=== PATIENT | male | born 1995 | race Caucasian/White ===

== ENCOUNTER 2021-07-12 21:28 | Emergency (ER) | payer OTHER, SELFPAY ==
[2021-07-12 21:29] VITALS: BP 146/98; PULSE 100; RESP 16; TEMP 37.4; O2SAT 97; BMI 25.8
--- NOTE | 2021-07-12 21:52 | XR_ITS ---
PROCEDURE INFORMATION: Exam: XR Chest Exam date and time: 07/12/2021 9:52 PM Age: 26 years old Clinical indication: Cough and shortness of breath; Patient HX: Cough, SOA, body aches TECHNIQUE: Imaging protocol: XR of the chest. Views: 2 views. COMPARISON: CR XR SOFT TISSUE NECK 09/13/2019 4:30 PM FINDINGS: Lungs: Faint left basilar opacity Pleural spaces: Unremarkable. No pleural effusion. No pneumothorax. Heart/Mediastinum: Unremarkable. No cardiomegaly. Bones/joints: Unremarkable. IMPRESSION: Faint left basilar opacity may represent infiltrate
[2021-07-12 22:00] LABS: Influenza A, PCR Not Detected (NotDetected); Influenza B, PCR Not Detected (NotDetected)
[2021-07-12 22:29] LABS: Coronavirus 19, PCR Detected (NotDetected)
--- NOTE | 2021-07-12 22:29 | HMH.EDSOB ---
ED Disposition Clinical Impression: COVID-19 Disposition: Home, Self-Care Condition on Discharge: Good Instructions: DI for COVID-19 (Suspected or Confirmed ) Additional Instructions: fluids and see pcp for follow up Referrals: Provider,Referral, [Primary Care Provider] - - Critical Care Critical Care Time: No Attestation: On 07/12/21, the high probability of a clinically significant, sudden or life threatening deterioration of the following system(s) required my full and direct attention, intervention and personal management. The time I documented below is in addition to time spent performing reported procedures but includes the following listed in this critical care notation. Medical Decision Making - Medical Records Medical records reviewed: Yes: I reviewed the patient's medical records. - Julian Inquiry Pt receiving controlled substance: No Vital Signs: 07/12/21 21:29 Temperature 99.4 F Temperature Source Oral Pulse Rate [Left Radial] 100 H Respiratory Rate 16 Blood Pressure [Right Arm] 146/98 H Blood Pressure Mean [Right Arm] 114 Blood Pressure Source [Right Arm] Automatic Cuff Blood Pressure Position [Right Arm] Sitting 02 Sat by Pulse Oximetry 97 Oxygen Delivery Method Room Air - Lab Data Lab results reviewed: Yes: I reviewed the patient's lab results. Lab Results 07/12/21 21:50: SARS-CoV-2 (PCR) Detected A, Influenza A Untype (PCR) Not detected, Influenza Type B (PCR) Not detected Orders (Tests/Meds): ED MEDICATIONS Discontinued Medications Generic Name Dose Route Start Last Admin Trade Name Freq PRN Reason Stop Dose Admin Acetaminophen 1,000 mg 07/12/21 21:52 07/12/21 21:57 Acetaminophen 500mg Tab PO 07/12/21 21:53 1,000 mg ONCE ONE Administration Dexamethasone Sodium Phosphate 10 mg 07/12/21 21:53 07/12/21 22:28 Dexamethasone 4mg/Ml 5ml Mdv IM 07/12/21 21:54 10 mg ONCE ONE Administration Ibuprofen 600 mg 07/12/21 21:52 07/12/21 21:57 Ibuprofen 600 Mg Tablet PO 07/12/21 21:53 600 mg ONCE ONE Administration - Radiology Data #1 Image(s): Chest Image Reviewed: Yes I have reviewed radiologist's interpretation Preliminary Findings: Abnormal Medical Decision Narrative: pt with covid-19 Resp/SOB HPI - General Chief Complaint: Upper Respiratory Infection Stated Complaint: cough Time Seen by Provider: 07/12/21 22:00 Mode of Arrival: Ambulatory Source of Information: Patient, Medical Record Limitations: Language Barrier Description of Symptoms (Recalled from ER Triage Doc. by RN): Pt c/o cough, BORDEN, sore throat, and body aches that started last friday. - History of Present Illness cough and achey over the last few days MD Complaint: cough Onset (ago): day(s) Severity: moderate Associated symptoms: denies other symptoms - Related Data Home oxygen amount: none Home Medications Medication Instructions Recorded Confirmed No Known Home Medications 07/12/21 07/12/21 Allergies Allergy/AdvReac Type Severity Reaction Status Date / Time No Known Allergies Allergy Verified 07/12/21 21:51 [facility] History - Hepatitis A Screen Drug use history?: No High risk sexual behaviors?: No History of sexually transmitted infection?: No Currently employed?: No Childcare worker?: No Do you have indoor plumbing?: Yes Do you have electricity?: Yes Attestation statement:: This patient has been screened for Hepatitis A risk factors. I have reviewed the patient's past medical history: Yes - Social History Smoking Status: Current every day smoker Tobacco Type: cigarettes # Packs/Day (cigarettes): 1 Alcohol Intake: never Occupational Status: other ROS Obtained: Yes All systems reviewed & no additional complaints - Constitutional Constitutional: Reports as per HPI, Reports fever(s) - Eyes Eyes: Denies change in vision - ENT Ears, Nose, Mouth, and Throat: Denies sore throat - Cardiovascular Cardiovascular
[2021-07-12 22:30] VITALS: BP 141/98; PULSE 88; RESP 18; O2SAT 97
[2021-07-12 23:00] VITALS: BP 148/90; PULSE 84; O2SAT 98
[2021-07-12 23:32] VITALS: BP 139/91; PULSE 88; RESP 16; TEMP 36.8; O2SAT 98
== END 2021-07-12 23:34 | disposition home or self-care (01) ==
PROVIDERS: Emergency Provider Emergency Medicine
DX: U07.1 COVID-19 (principal); F17.210 Nicotine dependence, cigarettes, uncomplicated
CPT/HCPCS: 71046; 96372; 99282; U0003

== ENCOUNTER 2021-07-24 10:10 | Emergency (ER) | payer OTHER, SELFPAY ==
[2021-07-24 11:26] VITALS: BP 139/88; PULSE 61; RESP 18; TEMP 36.8; O2SAT 98; BMI 22.4
[2021-07-24 11:30] VITALS: BP 139/88; PULSE 61; RESP 18; TEMP 36.8
--- NOTE | 2021-07-24 11:51 | HMH.EDUTC ---
[facility] [place] Disposition Clinical Impression: COVID-19 Disposition: Home, Self-Care Condition on Discharge: Good Instructions: DI for COVID-19 (Suspected or Confirmed ), Preventing the Spread of Coronavirus Discharge Instructions Additional Instructions: If your quarantine time is up and you feel better, it should be ok for you to return to work without being retested. Follow up with your primary care physician. GO TO THE ER FOR ANY WORSENING SYMPTOMS OR CONCERNS Referrals: Provider,Referral, [Primary Care Provider] - Time of Disposition: 11:55 Medical Decision Making - Medical Records Medical records reviewed: No: I reviewed the patient's medical records. - Julian Inquiry Pt receiving controlled substance: No Vital Signs: 07/24/21 11:26 07/24/21 11:30 Temperature 98.3 F 98.3 F Temperature Source Oral Pulse Rate 61 Pulse Rate [Left] 61 Respiratory Rate 18 18 Blood Pressure 139/88 Blood Pressure [Right Arm] 139/88 Blood Pressure Mean [Right Arm] 105 02 Sat by Pulse Oximetry 98 [facility] [place] HPI - General Stated complaint: covid test Time Seen by Provider: 07/24/21 11:51 Mode of Arrival: Ambulatory Source of Information: Patient Limitations: No Limitations Description of Symptoms (Recalled from Triage Doc. by RN): covid test. pt had a positive test two weeks ago. HEENT Symptoms (Recalled from RN notes): No Resp Symptoms (Recalled from RN notes): No Skin Symptoms (Recalled from RN notes): No MS Symptoms (Recalled from RN notes): No Functional Status (Recalled from RN notes): na - History of Present Illness Provider Complaint: He tested positive for covid-19 2 weeks ago. He did ok with covid-19 and got better fairly quickly. His employer brought him here to be retested before he returns to work. He has not had any symptoms in several days. - Related Data Home Medications Medication Instructions Recorded Confirmed No Known Home Medications 07/12/21 07/12/21 Allergies Allergy/AdvReac Type Severity Reaction Status Date / Time No Known Allergies Allergy Verified 07/12/21 21:51 - Worker's Comp Is this a Worker's Comp case?: No [facility] History - Hepatitis A Screen Drug use history?: No High risk sexual behaviors?: No History of sexually transmitted infection?: No Currently employed?: No Childcare worker?: No Do you have indoor plumbing?: Yes Do you have electricity?: Yes Attestation statement:: This patient has been screened for Hepatitis A risk factors. I have reviewed the patient's past medical history: Yes - Social History Smoking Status: Current every day smoker Tobacco Type: cigarettes # Packs/Day (cigarettes): 1 Alcohol Intake: never Occupational Status: other ROS Obtained: Yes All systems reviewed & no additional complaints - Constitutional Constitutional: Denies chills, Denies fever(s) - Eyes Eyes: Denies eye discharge - ENT Ears, Nose, Mouth, and Throat: Denies dizziness, Denies otalgia, Denies sore throat - Cardiovascular Cardiovascular: Denies chest pain - Respiratory Respiratory: Denies chest congestion, Denies cough, Denies dyspnea, Denies stridor, Denies wheezing - Gastrointestinal Gastrointestingal: Denies: abdominal pain, diarrhea, nausea, vomiting Physical Exam - General General appearance: alert, in no apparent distress - Head Head exam: atraumatic, normocephalic, normal inspection - Eye Eye exam: Present: normal appearance, PERRL, EOMI - ENT ENT exam: Present: normal exam, normal oropharynx, mucous membranes moist, TM's normal bilaterally, normal external ear exam - Neck Neck exam: Present: normal inspection, full ROM, trachea midline. Absent: meningismus, lymphadenopathy - Chest Chest inspection: Present: normal inspection, symmetric chest wall rise. Absent: tenderness - Respiratory Respiratory exam: Present: normal lung sounds bilaterally. Absent: respiratory distress - Cardiovascular Cardiovascular exam: P
== END 2021-07-24 12:00 | disposition home or self-care (01) ==
PROVIDERS: Emergency Provider Nurse Practitioner Family
DX: U07.1 COVID-19 (principal)
CPT/HCPCS: 99202; G0463; U0003